=== PATIENT | female | born 1935 | race Caucasian/White ===

== ENCOUNTER → 2024-08-10 | Outpatient (CLI) | payer MEDICARE, BC, SELFPAY ==
[2024-08-10 12:15] LABS: Absolute Lymphocyte Count 1.54 X10^3/uL (0.83-4.51); Absolute Neutrophil Count 3.4 X10^3/uL (2.0-7.7); Basophil# 0.07 X10^3/uL; Basophil% 1.3 % (0-1); Eosinophil# 0.14 X10^3/uL; Eosinophils% 2.5 % (0-5); Hematocrit 42.6 % (37-47); Hemoglobin 13.8 g/dL (12.0-15.0); Lymphocyte # 1.54 X10^3/ul (0.83-4.51); Lymphocyte % 27.8 % (19-41); Mean Corp Hgb Conc 32.4 g/dL (32-36); Mean Corpuscular Hgb 31.2 pg (27.0-32.0); Mean Corpuscular Volume 96.2 fL (81-99); Mean Platelet Vol. 11.2 fl (6.2-12.0); Monocyte% 7.2 % (0-10); NRBC Flagged by Analyzer 0 % (0-5); Neutrophil # 3.37 X10^3/uL (2.7-7.7); Neutrophil % 60.8 % (47-70); Platelet Count 253 K/mm3 (150-450); RBC Distribution Width CV 12.2 % (11.6-14.6); RBC Distribution Width SD 43.4 fl (35.1-43.9); Red Blood Count 4.43 M/mm3 (4.2-5.4); White Blood Count 5.5 K/mm3 (4.4-11.0)
[2024-08-10 12:54] LABS: ALB/GLOB Ratio 1.1 RATIO (0.9-2.4); AST(SGOT) 20 U/L (15-37); Alanine Aminotransfer ALT/SGPT 15 U/L (13-56); Albumin, Serum 3.8 g/dL (3.2-5.0); Alkaline Phosphatase 62 U/L (45-117); Anion Gap 5 (5-15); BUN 20 mg/dL (7-18); BUN/Creat Ratio 20.6 RATIO (10-20); Calcium,Total 9.4 mg/dL (8.5-10.1); Chloride 106 mmol/L (98-107); Cholesterol 196 mg/dL (200); Creatinine, Serum 0.97 mg/dL (0.55-1.02); EST Glomerular Filtration Rate 57 mL/min (>60); Est Glom Filt Rate - Afr Amer 70 mL/min (>60); Globulin 3.6 g/dL (2.2-4.2); Glucose 96 mg/dL (74-106); High Density Lipoprotein 99 mg/dL; Potassium 4.2 mmol/L (3.5-5.1); Protein, Total 7.4 g/dL (6.4-8.2); Sodium Level 138 mmol/L (136-145); Triglycerides 92 mg/dL; Very Low Density Lipoprotein 18 mg/dL (5-40)
[2024-08-10 15:25] LABS: Vitamin D,25 Hydroxy 28.5 ng/mL
== END | disposition home or self-care (01) ==
LOC: BIMLAB 11:17
PROVIDERS: PCP Internal Medicine; Referring Provider Internal Medicine; Visit Provider Internal Medicine
DX: R00.2 Palpitations (principal); M81.0 Age-related osteoporosis without current pathological fracture; R42 Dizziness and giddiness; Z13.6 Encounter for screening for cardiovascular disorders
CPT/HCPCS: 36415; 80053; 80061; 82306; 85025

== ENCOUNTER 2025-02-28 09:30 | Outpatient (RCR) | payer MEDICARE, BC, SELFPAY ==
--- NOTE | 2025-02-15 18:56 | HP.PTEVAL ---
Patient's Visit Information Visit Information Visit Information: SAWYER MART is a 89 year old F referred to Physical Therapy by Dr. Kassy Felder MD with a diagnosis of dizziness and giddiness. Date of Evaluation: 02/15/25 Physical Therapist: SHAY Zepeda Visit Plan Frequency: 2x /Week Duration: 6 Weeks Subjective Subjective: Pt has been having trouble with vertigo. She sleeps on her R side. When she lays down on the R side she will get the room spinning and grabs the headboard and it seems to stop it. She has not laid on her L side for 4 years because of the spinning. She had a VNG test and the Dr maneuvered her. It did get better. The Dr started to treat her on her R side. She feels like it is back. 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 She does not live alone. She has trouble with her sinuses and Dr Camejo gave her a medication for her sinuses She was take meclizine every so often but can not take it with her sinuses. She uses a cane and has had no falls. She is all on one floor except into the house. Objective Objective: +Hallpike to the R for dizziness but not for nystagmus that I could see. It lasted less than 30 seconds. She had to hold her partners hand. + Hallpike to the R for dizziness and Nystagmus that lasted approx 30 seconds. Treated with R Eply. 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 Balance/Special Test Scores Dizziness Score: 32 Goals Goal 1:: Abolish dizziness when lays down on the R side at night Goal Time Frame: 4-6 Weeks Goal 2:: Test VOR if needed Goal Time Frame: 4-6 Weeks Rehabilitation Potential Rehabilitation Potential: Good Anticipated Interventions Patient/Client Instruction: Educate patient on: Condition For the Purpose of:: To improve nutrient delivery to tissue, To improve ability to perform ADL's, To increase tolerance to activity/condition/position, To improve performance and independence with ADL's and To increase flexibility/ROM Therapeutic Exercise to Include: Strength training, Body mechanics, Postural training, Flexibilty training, Gait and locomotor training, Neuromotor development, Passive ROM and Active ROM For the Purpose of:: To decrease pain, To increase ROM, To improve nutrient delivery to tissue, To improve muscle performance and motor function, To improve ability to perform ADL's, To increase tolerance to activity/condition/position, To decrease soft tissue restriction and To increase flexibility/ROM Functional Training to Include: Gait training For the Purpose of:: To improve safety with gait Manual Therapy Techniques to Include: Other Comment: Eply For the Purpose of:: To improve nutrient delivery to tissue and To improve muscle performance and motor function Text: Thank you for the opportunity to evaluate your patient. For Medicare and Medicare HMO plans, please review the plan of care and approve it. It will need to be FAXED BACK to us at [phone] for Medicare purposes. For Medicare only, by signing this I certify the plan of care. Please let me know if there are questions or concerns regarding this plan of care. Physician Signature: Date:
--- NOTE | 2025-02-28 10:05 | HP.PTDCSUM ---
Discharge Summary D/C summary: It has been my pleasure to treat SAWYER MART referred by Dr. Kassy Felder MD, with the diagnosis of dizziness and giddiness for a total of 3 visit(s). Discharge Date: 02/28/25 Please see the following information for a summary of their discharge status. Subjective Subjective: Pt reports that she has not had any dizziness and only had to do the BD for 4 days. Pt wants to get an order from her Dr for weakness. She might want to look into a class for exercises as well. Overall Improvement % Improvement: 100 Objective Objective/Function: -R Hallpike for dizziness and nystagmus -L Hallpike for dizziness and nystagmus Instructed pt and pt performed 3 rounds of BD exercises and pt will perform at home twice a day over the next week Goals Goal 1:: Abolish dizziness when lays down on the R side at night Goal Progress: Goal Met Goal 2:: Test VOR if needed Plan Plan: DC PT D/C Information Discharge Comments: DC PT d/c sentence: If there are questions or concerns regarding this patient's physical therapy, please feel free to call me at [phone]. Thank you for the referral of this patient. Sincerely, Brigida Quesada, MPT Balance/Gait/Functional tests Balance/Special Test Scores Dizziness Score: 26 Improvement % Improvement: 100
== END 2025-02-28 15:48 | disposition home or self-care (01) ==
LOC: PT 09:30
PROVIDERS: PCP Internal Medicine; Referring Provider Internal Medicine; Visit Provider Internal Medicine
DX: R42 Dizziness and giddiness (principal)
CPT/HCPCS: 97161; 97530

== ENCOUNTER → 2025-03-16 | Outpatient (CLI) | payer MEDICARE, BC, SELFPAY ==
--- NOTE | 2025-03-16 08:35 | ECHOD_ITS ---
Reason For Study Reason For Study: MURMUR Procedure This was a 2D Doppler, Color Flow transthoracic echocardiogram. Technically difficult study due to pectus excavatum. No apical images available. Exam performed in department. Left Ventricle Normal size and thickness. The LV systolic function is normal. EF is 65 %. Right Ventricle Normal right ventricle. Atria Normal left atrium. Mitral Valve Trivial mitral valve insufficiency. Tricuspid Valve The tricuspid valve is not well visualized. Aortic Valve Moderately calcified aortic valve. Moderate aortic valve stenosis. Mean peak gradient 25 mmHg. Pulmonic Valve The pulmonic valve is not well visualized. Great Vessels The aortic root is not well visualized. Pericardium/Pleural No pericardial effusion. MMode/2D Measurements & Calculations LVIDd: 4.1 cm IVSd: 0.73 cm LVOT diam: 2.3 cm LVIDs: 2.7 cm LVPWd: 0.89 cm LVOT area: 4.2 cm2 FS: 34.7 % Time Measurements MV dec time: 0.23 sec Doppler Measurements & Calculations MV E max eusebio: 63.2 cm/sec Lat Peak E' Eusebio: 5.7 cm/sec Med Peak E' Eusebio: 6.7 cm/sec MV A max eusebio: 67.0 cm/sec E/E' lat: 11.1 E/E' med: 9.5 MV E/A: 0.94 Ao V2 max: 325.8 cm/sec MV dec slope: 272.0 cm/sec2 Ao max P.8 mmHg Ao V2 mean: 238.2 cm/sec Ao mean P.2 mmHg Ao V2 VTI: 79.2 cm ECHO/Echo Complete Interpretation Summary Technically difficult study due to pectus excavatum. No apical images available The LV systolic function is normal. EF is 65 %. Moderately calcified aortic valve. Moderate aortic valve stenosis. Mean peak gr adient 25 mmHg. Ordering Physician: Kassy Felder Referring Physician: Kassy Felder Performed By: Mecca Castillo [facility]
--- OUTSIDE RECORDS SUMMARY | 2025-03-16 09:53 | XMS RPT_ITS | CCD ---
Author Organization [facility] Care Team Providers Care J2Ee Programmer Name Role Phone IKE FELDER G Primary Care Unavailable Bradford TA, Dr. Elena Primary Care Provider Bradford TA, Dr. Elena Attending Provider Dr. Ike Felder MD Referring Provider Smooth FUR MIXER-CAngela Attending Provider [phone] Greenbush, Ike Referring Unavailable Greenbush, Ike Attending Unavailable Bradford, Ike Primary Care Unavailable Greenbush, Ike Referring Unavailable Greenbush, Ike Attending Unavailable Bradford, Ike Primary Care Unavailable Bradford, Ike Referring Unavailable Bradford, Ike Attending Unavailable Greenbush, Ike Primary Care Unavailable Greenbush, Iek Attending Unavailable Bradford, Ike Primary Care Unavailable Greenbush, Ike Referring Unavailable UngererRyanAngela Attending Unavailable Allergies Allergy Classification Reported Allergen(s) Allergy Type Date of Onset Reaction(s) Facility (1 source) OTHER; Translations: [OTHER] Propensity to adverse reactions (disorder) 8 [facility] Repository (1 source) Adhesive Tape-Silicones Drug Intolerance 5 [facility] (3 sources) Adhesive Tape; Translations: [adhesive tape] Allergy to substance 5 Itching [facility] (2 sources) silver sulfADIAZINE Drug Allergy 5 Rash [facility] (1 source) silver sulfADIAZINE Drug Allergy 5 [facility] Repository Medications Current Medications Medication Drug Class(es) Dates Sig (Normalized) Sig (Original) amoxicillin 875 mg / clavulanate 125 mg oral tablet (2 sources) Penicillin-class Antibacterial Start: 02-08-2025 Amoxicillin-Pot Clavulanate 875-125 mg tablet Active 1 {tbl} PO TWICE A DAY February 08, 2025 12:00am atenolol 25 mg oral tablet (7 sources) beta-Adrenergic Alirio Start: 02-08-2025 Atenolol 25 mg tablet Active 12.5 mg PO daily February 08, 2025 10:36am Start: 02-08-2024 End: 08-10-2024 take 1 tablet by mouth twice daily Atenolol 25 mg tablet Discontinued 25 mg PO TWICE A DAY February 08, 2024 12:00am August 10, 2024 12:02pm Start: 05-12-2008 End: 02-08-2025 take 1 tablet by mouth once daily Atenolol 25 mg tablet Discontinued 25 mg PO daily August 10, 2024 12:02pm February 08, 2025 10:40am benzonatate 100 mg oral capsule (1 source) Non-narcotic Antitussive Start: 11-01-2024 End: 11-08-2024 take 1 capsule by mouth three times daily as needed for cough benzonatate (TESSALON PERLE) 100 mg capsule Indications: Acute non-recurrent sinusitis, unspecified location Take 1 capsule by mouth three times a day as needed for cough for up to 7 days. 21 capsule 11/01/2024 11/08/2024 Active Calcium (1 source) Phosphate Binder, Calcium Start: 05-02-2005 take 1 tablet by mouth twice daily CALCIUM 600 600 MG ORAL TAB Indications: Osteoporosis, unspecified take one twice a day 0 05/02/2005 Active cholecalciferol 0.025 mg oral capsule (2 sources) Vitamin D Start: 02-08-2024 take 1 capsule by mouth once daily Cholecalciferol (Vitamin D3) 25 mcg (1,000 unit) capsule Active 25 ug PO DAILY February 08, 2024 12:00am doxycycline hyclate 100 mg oral tablet (1 source) Tetracycline-clas s Drug Start: 11-01-2024 End: 11-11-2024 take 1 tablet by mouth twice daily doxycycline (VIBRA-TABS) 100 mg tablet Indications: Acute non-recurrent sinusitis, unspecified location Take 1 tablet by mouth two times a day for 10 days. 20 tablet 11/01/2024 11/11/2024 Active ergocalciferol, vitamin D2, (VITAMIN D2 ORAL) (1 source) take 2000 [IU] by mouth once daily ergocalciferol, vitamin D2, (VITAMIN D2 ORAL) Take 2,000 Units by mouth once daily. Active fexofenadine hydrochloride 180 mg oral tablet (2 sources) Histamine-1 Receptor Antagonist Start: 02-08-2025 take 1 tablet by mouth every twenty-four hours Fexofenadine (Esther Allergy) 180 mg tablet Active 180 mg PO Q24H February 08, 2025 12:00am handicap placard (2 sources) Start: 02-08-2025 handicap placard Active 0 .ROUTE .MEDSUPPLY February 08, 2025 12:00am Length of time: 5 years Diagnosis: Impaired physical mobility meclizine hydrochloride 12.5 mg oral tablet (7 sources) Antiemetic Start: 08-10-2024 take 1 tablet by mouth three times daily as needed for dizziness Meclizine 12.5 mg tablet Active 12.5 mg PO THREE TIMES A DAY as needed for dizziness August 10, 2024 12:02pm Start: 02-08-2024 End: 08-10-2024 take 1 tablet by mouth three times daily as needed for dizziness Meclizine 25 mg tablet Discontinued 25 mg PO THREE TIMES A DAY as needed for dizziness February 08, 2024 1:23pm August 10, 2024 12:02pm Start: 02-08-2024 End: 02-08-2024 take 1 tablet by mouth three times daily as needed Meclizine 12.5 mg tablet Discontinued 12.5 mg PO THREE TIMES A DAY as needed February 08, 2024 12:00am February 08, 2024 1:39pm Start: 05-12-2008 MECLIZINE 25 M G TAB Indications: Dizziness and giddiness Take one(1) tablet every 6 hours as needed for dizziness. 30 11 05/12/2008 Active MULTIVITAMIN ORAL TAB (1 source) Start: 05-02-2005 MULTIVITAMIN O RAL TAB Indications: Osteoporosis, unspecified take once daily 0 05/02/2005 Active Multivitamin tablet (2 sources) Start: 02-08-2024 Multivitamin t ablet Active 1 {tbl} PO DAILY February 08, 2024 12:00am predniSONE 20 mg oral tablet (1 source) Start: 11-01-2024 End: 11-06-2024 take 1 tablet by mouth twice daily predniSONE (DELTASONE) 20 mg tablet Indications: Acute non-recurrent sinusitis, unspecified location Take 1 tablet by mouth two times a day for 5 days. 10 tablet 11/01/2024 11/06/2024 Active salmon calcitonin 200 unt/actuat nasal spray (1 source) Calcitonin Start: 05-12-2008 take 1 spray(s) nasal route once daily CALCITONIN (SALMON) 200 UNIT/ACTUATION NASAL SPRAY AEROSOL Indications: Osteoporosis, unspecified 1 spray each nostril each day - alternating 3 05/12/2008 Active salmon oil/omega-3 fatty acids(FISH OIL 500 MG-100 MG CAP) (1 source) Start: 05-12-2008 salmon oil/ome ga-3 fatty acids(FISH OIL 500 MG-100 MG CAP) Take one(1) capsule daily. 0 05/12/2008 Active Problems Active Problems Problem Classification Problem Date Documented Date Episodic/Chronic Administrative/socia l admission (1 source) Other reduced mobility; Translations: [Other reduced mobility] Onset: 02-08-2025 Episodic Cardiac dysrhythmias (1 source) Paroxysmal supraventricular tachycardia; Translations: [Paroxysmal supraventricular tachycardia] 04-14-2024 Chronic Conditions associated with dizziness or vertigo (3 sources) Vertigo; Translations: [Dizziness and giddiness] Onset: 02-08-2025 Episodic Conditions associated with dizziness or vertigo (2 sources) Conditions associated with dizziness or vertigo Heart valve disorders (1 source) Nonrheumatic aortic (valve) stenosis; Translations: [Nonrheumatic aortic (valve) stenosis] Onset: 02-08-2025 Chronic Osteoporosis (2 sources) Osteoporosis; Translations: [Age-related osteoporosis without current pathological fracture] Onset: 08-10-2024 04-14-2024 Chronic Other upper respiratory infections (1 source) Acute sinusitis; Translations: [Acute sinusitis, unspecified] 11-01-2024 Episodic Past or Other Problems Problem Classification Problem Date Documented Date Episodic/Chronic Cardiac dysrhythmias (1 source) Palpitations; Translations: [Palpitations] Onset: 09-05-2024 Episodic Immunizations and screening for infectious disease (1 source) Encounter for immunization; Translations: [Encounter for immunization] Onset: 08-10-2024 Episodic Other screening for suspected conditions (not mental disorders or infectious disease) (1 source) Encounter for screening for cardiovascular disorders; Translations: [Encounter for screening for cardiovascular disorders] Onset: 08-10-2024 Episodic Results Test Name Value Interpretation Reference Range [facility] Internal Medicine Office Vis sameermike 03-10-2025 Internal Medicine Office Visit [facility] [address] [place] [address] [place] [address] OFFICE VISIT Date of Service: 03/10/25 MR#: [id number] Acct: [id number] Name: KENDRA ALSTON Rep #: [id number] : 1935 Provider: JADYN caban Age/Sex: 89/F Location: [facility] Status: Signed Intake Vital Signs 02/08/25 10:21 03/10/25 13:55 Height 5 ft 7 in 5 ft 7 in Weight: 135 lb 136 lb BMI 21.1 21.2 BP 126/80 H 124/68 H Blood Pressure Location Lt brachial Lt brachial Position Sitting Sitting Respiration 18 16 Pulse 68 79 Pulse Source Monitor Monitor Temp 96.7 F L 97.4 F L Temp Source Temporal Temporal Pulse Oximetry (%) 99 92 Oxygen Delivery Method room air room air Intake Visit Reasons: DISCUSS REFERRAL FOR PT Chief Complaint: referral for PT Contract Processor Required: No Accompanied by: Self Is patient in pain?: No Allergies silver sulfadiazine (From Silvadene) Allergy (Intermediate, Verified 03/10/25 13:48) Rash adhesive tape Allergy (Mild, Verified 03/10/25 13:48) Itching Medications ???Medication ???Instructions ???Recorded ???Confirmed ???Type cholecalciferol (vitamin D3) 25 25 mcg PO DAILY 02/08/24 03/10/25 History mcg (1,000 unit) capsule multivitamin 1 tab PO DAILY 02/08/24 03/10/25 H istory meclizine 12.5 mg tablet 12.5 mg PO TID PRN dizziness #90 1 10/10/23 03/10/25 Rx tabs amoxicillin 875 mg-potassium 1 tab PO BID #10 tabs 02/08/2503/29 Rx clavulanate 125 mg tablet atenolol 25 mg tablet 12.5 mg (1/2 x 25 mg) PO QDAY #90 02/08/25 03/10/25 Rx tabs fexofenadine 180 mg tablet 180 mg PO Q24H #10 tabs 02/08/25 0 03/10/25 Rx (Esther Allergy) handicap taras #1 ea 02/08/25 03/10/25 Rx Have you fallen in the past year?: No Nurse's Note: PT suggested she continue to build up some strength and to continue therapy for that PFSH Medical History Heart palpitations Age related osteoporosis Skin cancer Cataract Surgical History History of nephrectomy H/O cataract extraction H/O partial thyroidectomy H/O: hysterectomy History of tonsillectomy Family History Daughter Kidney disease on dialysis Mother Arthritis Father Lung disease Social History adopted: No household members: significant other number of children: 4 current occupational status: retired current occupation: worked at [employer] in [place], [employer] in [place] pets and animals: No Smoking Status: Current every day smoker tobacco type: cigarettes Tobacco: How many years used: 50 Electronic Cigarette Use: not used quit status: not considering quitting alcohol intake: never substance use type: does not use caffeine: Yes (2) Type: coffee frequency: does not exercise seatbelt use: always do you feel safe at home: Yes HPI HPI Chief Complaint: referral for PT Details: KENDRA ALSTON, is a 89 F who presents to the office today for consult for physical therapy. Patient states she had been in physical therapy for vertigo which is now resolved. Per the physical therapy provider she was recommended to have physical therapy for overall strength. Patient does use of a cane when out in public. States she ambulates in her home without the cane she does believe that her overall strength has slowly declined. States previously when she lived in [place] she did do a few different exercise groups to improve strengthening for older adults and would like to continue doing something similar. ROS Const Constitutional: No body ache, excessive sweating, fatigue, fever(s), frequent falls, headache(s), snoring, weakness, weight change, sleep problems or change in appetite Eyes Eyes: No blurry vision, change in vision, eye pain or Light sensitivity ENT ENT: No abnormal hearing, ear or mastoid pain, tinnitus, nasal congestion, headache(s), neck pain or sore throat Resp Respiratory: No cough, shortness of breath, snoring or wheezing Cardio Cardiology: No chest pain at rest, chest pain with exertion, excessive sweating, shortness of breath, dyspnea on exertion, lightheadedness, orthopnea or palpitations Gastro GI: No abdominal pain, change in bowel habits, constipation, cramping, diarrhea, nausea/dyspepsia or vomiting Genitourinary-Female : No burning urination, painful urination, urinary incontinence, urinary frequency, blood in urine, abnormal periods or pelvic pain Musc Musculoskeletal: No abnormal gait, joint pain, back pain, limited range of motion, neck pain, numbness, stiffness, tingling or Arthritis Skin Skin: No dry skin, redness, lesions, itchy eyes, rash or wounds Neuro Neurology: No ab (more content not included)... Normal [facility] PT D/C Summary (1)on 025 PT D/C Summary (1) [facility] Physical [facility] [address] [place] [address] [address] [place] [address] / REHABILITATION SERVICES DISCHARGE SUMMARY MR#: [id number] Acct: [id number] Name: KENDRA ALSTON Rep #: [id number] : 1935 89 From: Brigida DAY Referring Dr.: Dr. Ike Felder MD Status: R EG RCR Insurance: MEDICARE PART A B ANTH Discharge Summary D/C summary: It has been my pleasure to treat KENDRA ALSTON referred by Dr. Ike Felder MD, with the diagnosis of dizziness and giddiness for a total of 3 visit(s). Discharge Date: 02/28/25 Please see the following information for a summary of their discharge status. Subjective Subjective: Pt reports that she has not had any dizziness and only had to do the BD for 4 days. Pt wants to get an order from her Dr for weakness. She might want to look into a class for exercises as well. Overall Improvement % Improvement: 100 Objective Objective/Function: -R Hallpike for dizziness and nystagmus -L Hallpike for dizziness and nystagmus Instructed pt and pt performed 3 rounds of BD exercises and pt will perform at home twice a day over the next week Goals Goal 1:: Abolish dizziness when lays down on the R side at night Goal Progress: Goal Met Goal 2:: Test VOR if needed Plan Plan: DC PT D/C Information Discharge Comments: DC PT d/c sentence: If there are questions or concerns regarding this patient's physical therapy, please feel free to call me at [phone]. Thank you for the referral of this patient. Sincerely, SHAY Zepeda Balance/Gait/Functio nal tests Balance/Special Test Scores Dizziness Score: 26 Improvement % Improvement: 100 02/28/25 1005 CC: Dr. Ike Felder MD Signed [facility] Inital Evaluation (1) - PTon 02-15-2025 Inital Evaluation (1) - PT [facility] [address] [place] [id number] / REHABILITATION SERVICES INITIAL EVALUATION MR#: [id number] Acct: [id number] Name: KENDRA ALSTON Rep #: [id number] : 1935 89 From: Brigida DAY Referring Dr.: Dr. Ike Felder MD Status: R EG RCR Insurance: MEDICARE PART A B [facility] Patient's Visit Information Visit Information Visit Information: KENDRA ALSTON is a 89 year old F referred to Physical Therapy by Dr. Ike Felder MD with a diagnosis of dizziness and giddiness. Date of Evaluation: 02/15/25 Physical Therapist: SHAY Zepeda Visit Plan Frequency: 2x /Week Duration: 6 Weeks Subjective Subjective: Pt has been having trouble with vertigo. She sleeps on her R side. When she lays down on the R side she will get the room spinning and grabs the headboard and it seems to stop it. She has not laid on her L side for 4 years because of the spinning. She had a VNG test and the Dr maneuvered her. It did get better. The Dr started to treat her on her R side. She feels like it is back. She has a home delivery driver today. She does not live alone. She has trouble with her sinuses and Dr Camejo gave her a medication for her sinuses She was take meclizine every so often but can not take it with her sinuses. She uses a cane and has had no falls. She is all on one floor except into the house. Objective Objective: +Hallpike to the R for dizziness but not for nystagmus that I could see. It lasted less than 30 seconds. She had to hold her partners hand. + Hallpike to the R for dizziness and Nystagmus that lasted approx 30 seconds. Treated with R Eply. 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 Balance/Special Test Scores Dizziness Score: 32 Goals Goal 1:: Abolish dizziness when lays down on the R side at night Goal Time Frame: 4-6 Weeks Goal 2:: Test VOR if needed Goal Time Frame: 4-6 Weeks Rehabilitation Potential Rehabilitation Potential: Good Anticipated Interventions Patient/Client Instruction: Educate patient on: Condition For the Purpose of:: To improve nutrient delivery to tissue, To improve ability to perform ADL's, To increase tolerance to activity/condition/p osition, To improve performance and independence with ADL's and To increase flexibility/ROM Therapeutic Exercise to Include: Strength training, Body mechanics, Postural training, Flexibilty training, Gait and locomotor training, Neuromotor development, Passive ROM and Active ROM For the Purpose of:: To decrease pain, To increase ROM, To improve nutrient delivery to tissue, To improve muscle performance and motor function, To improve ability to perform ADL's, To increase tolerance to activity/condition/p osition, To decrease soft tissue restriction and To increase flexibility/ROM Functional Training to Include: Gait training For the Purpose of:: To improve safety with gait Manual Therapy Techniques to Include: Other Comment: Eply For the Purpose of:: To improve nutrient delivery to tissue and To improve muscle performance and motor function Text: Thank you for the opportunity to evaluate your patient. For Medicare and Medicare O plans, please review the plan of care and approve it. It will need to be FAXED BACK to us at [phone] for Medicare purposes. For Medicare only, by signing this I certify the plan of care. Please let me know if there are questions or concerns regarding this plan of care. Physician Signature: D ate: 02/15/25 1856 CC: Dr. Ike Felder MD Signed [facility] Internal Medicine Office Vis iton 02-07-2025 Internal Medicine Office Visit [facility] [place] [address] [place] [address] OFFICE VISIT Date of Service: 02/08/25 MR#: [id number] Acct: [id number] Name: KEDNRA ALSTON Rep #: [id number] : 1935 Provider: Dr. Ike tyson MD Age/Sex: 89/F Location: [facility] Status: Signed Intake Vital Signs 08/10/24 10:10 02/08/25 10:21 Height 5 ft 7 in 5 ft 7 in Weight: 135 lb BMI 21.1 BP 126/80 H Blood Pressure Location Lt brachial Position Sitting Respiration 18 Pulse 68 Pulse Source Monitor Temp 96.7 F L Temp Source Temporal Pulse Oximetry (%) 99 Oxygen Delivery Method room air Intake Visit Reasons: 6 M FU Contract Processor Required: No Is patient in pain?: No Allergies silver sulfadiazine (From Silvadene) Allergy (Intermediate, Verified 02/08/25 10:12) Rash adhesive tape Allergy (Mild, Verified 02/08/25 10:12) Itching Medications ???Medication ???Instructions ???Recorded ???Confirmed ???Type cholecalciferol (vitamin D3) 25 25 mcg PO DAILY 02/08/24 02/08/25 History mcg (1,000 unit) capsule multivitamin 1 tab PO DAILY 02/08/24 02/08/25 H istory meclizine 12.5 mg tablet 12.5 mg PO TID PRN dizziness #90 1 10/10/23 02/08/25 Rx tabs amoxicillin 875 mg-potassium 1 tab PO BID #10 tabs 02/08/2504/28 Rx clavulanate 125 mg tablet atenolol 25 mg tablet 12.5 mg (1/2 x 25 mg) PO QDAY #90 02/08/25 02/08/25 Rx tabs fexofenadine 180 mg tablet 180 mg PO Q24H #10 tabs 02/08/25 0 02/08/25 Rx (Esther Allergy) handicap placard #1 ea 02/08/25 02/08/25 Rx Have you fallen in the past year?: No Nurse's Note: Pt states she has been fatigued for a couple of weeks now. She also had a cough that is somewhat productive that started around the same time. Pt states the production is yellowish/green, she also c/o post nasal drainage. Has been using tylneol. Denies SOB, chest rattling, nasal congestion,facial pain/pressure ear pain. Needs atenolol refilled. [facility] Medical History Heart palpitations Age related osteoporosis Skin cancer Cataract Surgical History History of nephrectomy H/O cataract extraction H/O partial thyroidectomy H/O: hysterectomy History of tonsillectomy Family History Daughter Kidney disease on dialysis Mother Arthritis Father Lung disease Social History adopted: No household members: significant other number of children: 4 current occupational status: retired current occupation: worked at [employer] in [place], [employer] in [place] pets and animals: No Smoking Status: Current every day smoker tobacco type: cigarettes Tobacco: How many years used: 50 Electronic Cigarette Use: not used quit status: not considering quitting alcohol intake: never substance use type: does not use caffeine: Yes (2) Type: coffee frequency: does not exercise seatbelt use: always do you feel safe at home: Yes Questionnaire [facility]-9 BMS Over the last 2 weeks, how often have you been bothered by any of the following problems? 1. Little interest or pleasure in doing things: not at all 2. Feeling down, depressed, or hopeless: not at all 3. Trouble falling or staying asleep, or sleeping too much: several days 4. Feeling tired or having little energy: nearly every day 5. Poor appetite or overeating: several days 6. Feeling bad about yourself - or that you are a failure or have let yourself and your family down: not at all 7. Trouble concentrating on things, such as reading the newspaper or watching television: not at all 8. Moving or speaking so slowly that other people could have noticed? - Or the opposite - being so fidgety or restless that you have been moving around a lot more than usual: not at all 9. Thoughts that you would be better off or of hurting yourself in some way: not at all Total score: 5 If you checked off any problems, how difficult have these problems made it for you to do your work, take care of things at home, or get along with other people?: not difficult at all Source: Developed by Drs. Negrito Ken, Mary Amaya, Kane Salguero and colleagues, with an educational jerrell from [employer]. HPI HPI Details: KENDRA ALSTON, is a 89 F who presents to the office today for a follow up. She is up to date on her routine blood work and screening. She isn't due for any immunizations. She does smoke and doesn't want to quit at this time. She states, however, that she has cut back to 5 cigarettes per day down from 8-10. She does need refills today. She reports she is trying to eat healthy and tries to stay active around her house. She takes aten (more content not included)... [facility] CNOVon 11-01-2024 CNOV Office Visit ([facility]) KENDRA ALSTON ([id number]) 1935 F Date Time Provider Department 11/01/24 8:30 AM MUNIRA RUST [facility] During your visit today, we recorded the following information about you: Temperature Pulse Respiration Blood pressure 98 degrees 94/minute 22/minute 132/73 Weight 62 kg Munira Rust PA-C 11/01/2024 9:23 AM Signed This note was created using [employer]. Subjective Kendra Alston is a 89 year old female. Patient is an 89-year-old female who complains of congestion, sinus pressure, throat irritation, nasal discharge and cough that she has been experiencing for the past 10 days. Patient also describes an overall feeling of fatigue and illness. Patient has no history of asthma or COPD but does have a [id number] history of tobacco use and continues to smoke. Patient reports no episodes of wheezing, dyspnea or shortness of breath. Cough Review of Systems Constitutional: Positive for fatigue. HENT: Positive for congestion, postnasal drip and sinus pressure. Respiratory: Positive for cough. All other systems reviewed and are negative. Objective BP 132/73 Pulse 94 Temp 36.7 ?C (98 ?F) Resp 22 Wt 62 kg (136 lb 11 oz) LMP (LMP Unknown) SpO2 95% Physical Exam Vitals and nursing note reviewed. Constitutional: Appearance: Normal appearance. She is normal weight. HENT: Head: Normocephalic and atraumatic. Right Ear: Tympanic membrane, ear canal and external ear normal. Left Ear: Tympanic membrane, ear canal and external ear normal. Nose: Nose normal. Mouth/Throat: Mouth: Mucous membranes are moist. Pharynx: Oropharynx is clear. Eyes: Extraocular Movements: Extraocular movements intact. Conjunctiva/sclera: Conjunctivae normal. Pupils: Pupils are equal, round, and reactive to light. Cardiovascular: Rate and Rhythm: Normal rate and regular rhythm. Pulses: Normal pulses. Heart sounds: Normal heart sounds. Pulmonary: Effort: Pulmonary effort is normal. Breath sounds: Normal breath sounds. Musculoskeletal: Cervical back: Normal range of motion and neck supple. Skin: General: Skin is warm and dry. Capillary Refill: Capillary refill takes less than 2 seconds. Neurological: General: No focal deficit present. Mental Status: She is alert and oriented to person, place, and time. Psychiatric: Mood and Affect: Mood normal. Behavior: Behavior normal. Thought Content: Thought content normal. Judgment: Judgment normal. Assessment and Plan Physical exam findings as noted above. Patient was provided with prescriptions for doxycycline 100 mg, prednisone 20 mg and Tessalon 100 mg. Supportive care instructions were discussed and the patient was clearly advised to report to an emergency department if she notes any worsening symptoms. Patient verbalizes clear understanding of the above instructions. CLINICAL IMPRESSION: Acute Sinusitis ASSESSMENT/PLAN: 1. Acute non-recurrent sinusitis, unspecified location - ICD9: 461.9, ICD10: J01.90 - DOXYCYCLINE HYCLATE 100 MG TABLET - PREDNISONE 20 MG TABLET - BENZONATATE 100 MG CAPSULE Munira Rust PA-C Allergies As of Date: 11/01/2024 Noted Allergy Reaction ADHESIVE TAPE-SILICONES 11/01/2024 2 - Rash Date Reviewed: 11/01/2024 Reviewed by: Nona Christopher LPN - Fully Assessed Reason for Visit: Cough [28] Cmt: Chest congestion, nasal congestion, headache, fatigue, SOB, wheeze bilat eye mucous, yellow phlegm x 1 week Primary Visit Diagnosis:Acute non-recurrent sinusitis, unspecified location [J01.90] Order(s):doxycycline (VIBRA-TABS) 100 mg tabletTake 1 tablet by mouth two times a day for 10 days.Disp: 20 tabletRfl: 0 predniSONE (DELTASONE) 20 mg tabletTake 1 tablet by mouth two times a day for 5 days.Disp: 10 tabletRfl: 0 benzonatate (TESSALON PERLE) 100 mg capsuleTake 1 capsule by mouth three times a day as needed for cough for up to 7 days.Disp: 21 capsuleRfl: 0 Prescriptions as of 11/01/2024 - ergocalciferol, vitamin D2, (VITAMIN D2 ORAL) Take 2,000 Units by mouth once daily. - doxycycline (VIBRA-TABS) 100 mg tablet Take 1 tablet by mouth two times a day for 10 days. - predniSONE (DELTASONE) 20 mg tablet Take 1 tablet by mouth two times a day for 5 days. - benzonatate (TESSALON PERLE) 100 mg capsule Take 1 capsule by mouth three times a day as needed for cough for up to 7 days. - salmon oil/omega-3 fatty acids(FISH OIL 500 MG-100 MG CAP) Take one(1) capsule daily. - CALCITONIN (SALMON) 200 UNIT/ACTUATION NASAL SPRAY AEROSOL 1 spray each nostril each day - alternating - MECLIZINE 25 MG TAB Take one(1) tablet every 6 hours as needed for dizziness. - ATENOLOL 25 MG TAB Take one(1) tablet daily. - CALCIUM 600 600 MG ORAL TAB take one twice a day - MULTIVITAMIN ORAL TAB take once daily Problem List As Of Date 11/01/2024 Noted Resolved PAROX ATRIAL TACHYCAR (more content not included)... Normal [facility] CBC W/Diff, Automatedon 11-0 Absolute Lymph 1.54 X10 3/uL Normal 0.83-4.51 [facility] Comment on above: Performed By: #### L 500.4050, L506.1000, L100.0100, L500.4100 #### [facility] [address] [place], [address] Absolute Neut 3.4 X10 3/uL Normal 2.0-7.7 [facility] Comment on above: Performed By: #### L 500.4050, L506.1000, L100.0100, L500.4100 #### [facility] [address] [place], [address] Basophils/100 WBC (Bld) 1.3 % High 0-1 [facility] Comment on above: Performed By: #### L 500.4050, L506.1000, L100.0100, L500.4100 #### [facility] [address] [place], [address] Eosinophils/100 WBC (Bld) 2.5 % Normal 0-5 [facility] Comment on above: Performed By: #### L 500.4050, L506.1000, L100.0100, L500.4100 #### [facility] [address] [place], [address] Erythrocyte distribution width (RBC) [Ratio] 12.2 % Normal 11.6-14.6 [facility] Comment on above: Performed By: #### L 500.4050, L506.1000, L100.0100, L500.4100 #### [facility] [address] [place], [address] Hematocrit (Bld) [Volume fraction] 42.6 % Normal 37-47 [facility] Comment on above: Performed By: #### L 500.4050, L506.1000, L100.0100, L500.4100 #### [facility] [address] [place], [address] Hemoglobin (Bld) [Mass/Vol] 13.8 g/dL Normal 12.0-15.0 [facility] Comment on above: Performed By: #### L 500.4050, L506.1000, L100.0100, L500.4100 #### [facility] [address] [place], [address] IG% 0.400 Normal 0.0-0.9 [facility] Comment on above: Result Comment: IG% - Immature Granulocytes (promyelocytes, myelocytes and metamyelocytes) > 1% indicates that a LEFT SHIFT is Present. Performed By: #### L 500.4050, L506.1000, L100.0100, L500.4100 #### [facility] [address] [place], [address] Lymphocytes/100 WBC (Bld) 27.8 % Normal 19-41 [facility] Comment on above: Performed By: #### L 500.4050, L506.1000, L100.0100, L500.4100 #### [facility] [address] [place], [address] MCH (RBC) [Entitic mass] 31.2 pg Normal 27.0-32.0 [facility] Comment on above: Performed By: #### L 500.4050, L506.1000, L100.0100, L500.4100 #### [facility] [address] [place], [address] MCHC (RBC) [Mass/Vol] 32.4 g/dL Normal 32-36 [facility] Comment on above: Performed By: #### L 500.4050, L506.1000, L100.0100, L500.4100 #### [facility] [address] [place], [address] MCV (RBC) [Entitic vol] 96.2 fL Normal 81-99 [facility] Comment on above: Performed By: #### L 500.4050, L506.1000, L100.0100, L500.4100 #### [facility] [address] [place], [address] Monocytes/100 WBC (Bld) 7.2 % Normal 0-10 [facility] Comment on above: Performed By: #### L 500.4050, L506.1000, L100.0100, L500.4100 #### [facility] [address] [place], [address] Neutrophils/100 WBC (Bld) 60.8 % Normal 47-70 [facility] Comment on above: Performed By: #### L 500.4050, L506.1000, L100.0100, L500.4100 #### [facility] [address] [place], [address] Nucleated RBC (Bld) [#/Vol] 0 10*3/uL Normal 0-5 [facility] Comment on above: Performed By: #### L 500.4050, L506.1000, L100.0100, L500.4100 #### [facility] [address] [place], [address] Platelet mean volume (Bld) [Entitic vol] 11.2 fL Normal 6.2-12.0 [facility] Comment on above: Performed By: #### L 500.4050, L506.1000, L100.0100, L500.4100 #### [facility] [address] [place], [address] Platelets (Bld) [#/Vol] 253 10*3/uL Normal 150-450 [facility] Comment on above: Performed By: #### L 500.4050, L506.1000, L100.0100, L500.4100 #### [facility] [address] [place], [address] RBC (Bld) [#/Vol] 4.43 10*6/uL Normal 4.2-5.4 [facility] Comment on above: Performed By: #### L 500.4050, L506.1000, L100.0100, L500.4100 #### [facility] [address] [place], [address] RDW SD 43.4 fl Normal 35.1-43.9 [facility] Comment on above: Performed By: #### L 500.4050, L506.1000, L100.0100, L500.4100 #### [facility] [address] [place], [address] WBC (Bld) [#/Vol] 5.5 10*3/uL Normal 4.4-11.0 [facility] Comment on above: Performed By: #### L 500.4050, L506.1000, L100.0100, L500.4100 #### [facility] [address] [place], [address] Comprehensive Metabolic Prof ilon 08-10-2024 Albumin [Mass/Vol] 3.8 g/dL Normal 3.2-5.0 [facility] Comment on above: Performed By: #### L 500.4050, L506.1000, L100.0100, L500.4100 #### [facility] [address] [place], [address] Albumin/Globulin [Mass ratio] 1.1 {ratio} Normal 0.9-2.4 [facility] Comment on above: Performed By: #### L 500.4050, L506.1000, L100.0100, L500.4100 #### [facility] [address] [place], [address] ALK P 62 U/L Normal 45-117 [facility] Comment on above: Performed By: #### L 500.4050, L506.1000, L100.0100, L500.4100 #### [facility] [address] [place], [address] ALT [Catalytic activity/Vol] 15 U/L Normal 13-56 [facility] Comment on above: Performed By: #### L 500.4050, L506.1000, L100.0100, L500.4100 #### [facility] [address] [place], [address] AST [Catalytic activity/Vol] 20 U/L Normal 15-37 [facility] Comment on above: Performed By: #### L 500.4050, L506.1000, L100.0100, L500.4100 #### [facility] [address] [place], [address] Bilirubin [Mass/Vol] 0.70 mg/dL Normal 0.20-1.00 [facility] Comment on above: Result Comment: For patients on eltrombopag therapy, use of Dimension [place] TBIL is not recommended. Performed By: #### L 500.4050, L506.1000, L100.0100, L500.4100 #### [facility] [address] [place], [address] BUN/CRE 20.6 RATIO High 10-20 [facility] Comment on above: Performed By: #### L 500.4050, L506.1000, L100.0100, L500.4100 #### [facility] [address] [place], [address] CA,Total 9.4 mg/dL Normal 8.5-10.1 [facility] Comment on above: Performed By: #### L 500.4050, L506.1000, L100.0100, L500.4100 #### [facility] [address] [place], [address] Chloride [Moles/Vol] 106 mmol/L Normal 98-107 [facility] Comment on above: Performed By: #### L 500.4050, L506.1000, L100.0100, L500.4100 #### [facility] [address] [place], [address] CO2 [Moles/Vol] 28.0 mmol/L Normal 21.0-32.0 [facility] Comment on above: Performed By: #### L 500.4050, L506.1000, L100.0100, L500.4100 #### [facility] [address] [place], [address] Creatinine [Mass/Vol] 0.97 mg/dL Normal 0.55-1.02 [facility] Comment on above: Result Comment: The validity of the calculated GFR GFRAA in patients over 70 years has not been determined. Clinical correlation is essential. Performed By: #### L 500.4050, L506.1000, L100.0100, L500.4100 #### [facility] [address] [place], [address] EST GFR - AA 70 mL/min Normal >60 [facility] Comment on above: Result Comment: Afri can [place] Islander GFR Calc Performed By: #### L 500.4050, L506.1000, L100.0100, L500.4100 #### [facility] [address] [place], [address] GAP 5 Normal 5-15 [facility] Comment on above: Performed By: #### L 500.4050, L506.1000, L100.0100, L500.4100 #### [facility] [address] [place], [address] GFR/1.73 sq M.predicted among non-blacks MDRD (S/P/Bld) [Vol rate/Area] 57 mL/min/{1.73_m2} Low >60 [facility] Comment on above: Result Comment: Non- GFR Calc Performed By: #### L 500.4050, L506.1000, L100.0100, L500.4100 #### [facility] [address] [place], [address] Globulin (S) [Mass/Vol] 3.6 g/dL Normal 2.2-4.2 [facility] Comment on above: Performed By: #### L 500.4050, L506.1000, L100.0100, L500.4100 #### [facility] [address] [place], [address] Glucose [Mass/Vol] 96 mg/dL Normal 74-106 [facility] Comment on above: Performed By: #### L 500.4050, L506.1000, L100.0100, L500.4100 #### [facility] [address] [place], [address] Potassium [Moles/Vol] 4.2 mmol/L Normal 3.5-5.1 [facility] Comment on above: Performed By: #### L 500.4050, L506.1000, L100.0100, L500.4100 #### [facility] [address] [place], [address] Sodium [Moles/Vol] 138 mmol/L Normal 136-145 [facility] Comment on above: Performed By: #### L 500.4050, L506.1000, L100.0100, L500.4100 #### [facility] [address] [place], [address] T PROT 7.4 g/dL Normal 6.4-8.2 [facility] Comment on above: Performed By: #### L 500.4050, L506.1000, L100.0100, L500.4100 #### [facility] [address] [place], [address] Urea nitrogen [Mass/Vol] 20 mg/dL High 7-18 [facility] Comment on above: Performed By: #### L 500.4050, L506.1000, L100.0100, L500.4100 #### [facility] [address] [place], [address] Lipid Profileon 08-10-2024 Cholesterol [Mass/Vol] 196 mg/dL Normal 200 [facility] Comment on above: Result Comment: <200 mg/dL Desirable 200-240 mg/dL Borderline >240 mg/dL High Risk Performed By: #### L 500.4050, L506.1000, L100.0100, L500.4100 #### [facility] [address] [place], [address] Cholesterol in HDL [Mass/Vol] 99 mg/dL Normal [facility] Comment on above: Result Comment: The drugs N-Acetylcysteine and Metamizole may falsely depress this assay. Reference Range HDL <40 mg/dL Low HDL Cholesterol HDL >or= 60 mg/dL High HDL Cholesterol Performed By: #### L 500.4050, L506.1000, L100.0100, L500.4100 #### [facility] [address] [place], [address] Cholesterol in LDL [Mass/Vol] 79 mg/dL Normal 0-130 [facility] Comment on above: Performed By: #### L 500.4050, L506.1000, L100.0100, L500.4100 #### [facility] [address] [place], [address] Cholesterol in VLDL [Mass/Vol] 18 mg/dL Normal 5-40 [facility] Comment on above: Performed By: #### L 500.4050, L506.1000, L100.0100, L500.4100 #### [facility] [address] [place], [address] Triglyceride [Mass/Vol] 92 mg/dL Normal [facility] Comment on above: Result Comment: The drugs N-Acetylcysteine and Metamizole may falsely depress this assay. Serum Triglycerides Reference Interval Normal <150 mg/dL Borderline high 150 - 199 mg/dL High 200 - 499 mg/dL Very High > or = 500 mg/dL Performed By: #### L 500.4050, L506.1000, L100.0100, L500.4100 #### [facility] [address] [place], [address] Vitamin D,25 Hydroxyon 08-10 Vitamin D 25-OH 28.5 ng/mL Normal [facility] Comment on above: Result Comment: Diana min D 25(OH) Status Range Deficiency <20 ng/mL (50nmol/L) Insufficiency 20 - 30 ng/mL (50 - 75 nmol/L) Sufficiency 30 - 100 ng/mL (75 - 250 nmol/L) Toxicity >100 ng/mL (>250 nmol/L) Performed By: #### L 500.4050, L506.1000, L100.0100, L500.4100 #### [facility] [address] [place], [address] Internal Medicine Office Vis jasmeet 08-09-2024 Internal Medicine Office Visit [facility] [place] [address] OFFICE VISIT Date of Service: 08/10/24 MR#: [id number] Acct: [id number] Name: KENDRA ALSTON Rep #: [id number] : 1935 Provider: Dr. 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 Accompanied by: Self Is patient in pain?: No Allergies silver sulfadiazine (From Silvadene) Allergy (Intermediate, Verified 08/10/24 10:05) Rash adhesive tape Allergy (Mild, Verified 08/10/24 10:05) Itching Medications ???Medication ???Instructions ???Recorded ???Confirmed ???Type cholecalciferol (vitamin D3) 25 25 mcg PO DAILY 02/08/24 08/10/24 History mcg (1,000 unit) capsule multivitamin 1 tab PO DAILY 02/08/24 08/10/24 History atenolol 25 mg tablet 25 mg PO QDAY #90 tabs 08/10/24 08/10/24 Rx meclizine 12.5 mg tablet 12.5 mg PO TID PRN dizziness #90 08/10/24 08/10/24 Rx tabs Have you fallen in the past year?: No PFSH Medical History Heart palpitations Age related osteoporosis Skin cancer Cataract Surgical History (Updated 08/10/24 @ 10:[address] Ike Felder MD) History of nephrectomy H/O cataract extraction H/O partial thyroidectomy H/O: hysterectomy History of tonsillectomy Family History Daughter Kidney disease on dialysis Mother Arthritis Father Lung disease Social History adopted: No household members: significant other number of children: 4 current occupational status: retired current occupation: worked at [employer] in [place], [employer] in [place] pets and animals: No Smoking Status: Current every day smoker tobacco type: cigarettes Tobacco: How many years used: 50 Electronic Cigarette Use: not used quit status: not considering quitting alcohol intake: never substance use type: does not use caffeine: Yes (2) Type: coffee frequency: does not exercise seatbelt use: always do you feel safe at home: Yes HPI HPI Chief Complaint: 6m f/u Details: KENDRA ALSTON, is a 89 F who presents to the office today for a follow up. She is due for some routine blood work and is up to date on her screening. She does want her flu shot. She does smoke and doesn't want to quit at this time. She doesn't need any refills today. She reports she is eating healthy and tries to stay active around her house. The patient has been on atenolol for around 15 years. She reports it was started for palpitations. She reports she could feel the pounding sensation. She reports in the last few months, she changed to taking it as needed. She reports she can sometimes go a few days without any symptoms. She reports on the days she does take it, she has only needed it once daily. The patient was able to see dermatology and saw them yesterday. She was placed on a chemo cream for a lesion on her samaritan which she just completed 4 weeks of. She has a full body scan next month. The patient reports she continues to have problems with vertigo. She reports when she lays down at night, she will feel a brief episode. She does take the meclizine. She states the higher dose made her feel 'wonky.' She went back to using the smaller dose noting she had an older prescription. She never scheduled with vestibular therapy stating nobody called her, but she would like to get that set up. She has no other questions or concerns at this time. ROS Const Constitutional: No body ache, chills, excessive sweating, fatigue, fever(s), frequent falls, headache(s), snoring, weakness, weight change or change in appetite Eyes Eyes: No blurry vision, change in vision, eye pain or Light sensitivity ENT ENT: No abnormal hearing, ear or mastoid pain, tinnitus, nasal congestion, headache(s), neck pain or sore throat Resp Respiratory: No cough, shortness of breath, snoring or wheezing Cardio Cardiology: Positive for palpitations (occasional) and other (mild swelling); No chest pain at rest, chest pain with exertion, excessive sweating, dyspnea on exertion, lightheadedness or orthopnea Gastro GI: No abdominal pain, change in bowel habits, constipation, cramping, diarrhea, nausea/dyspepsia or vomiting Genitourinary-Female : No burning urination, painful urination, urinary incontinence or urinary frequency Musc Mu (more content not included)... Normal [facility] Vital Signs Date Time Vital Sign Value Performing Clinician Facility 03-10-2025 13:55-0400 Body height 170.[address] Ike Felder MD Work Phone: [facility] 03-10-2025 13:55-0400 Body mass index (BMI) [Ratio] 21.2 kg/m2 Dr. Ike Felder MD Work Phone: [facility] 03-10-2025 13:55-0400 Body temperature 97.4 [degF] Dr. Ike Felder MD Work Phone: [facility] 03-10-2025 13:55-0400 Body weight 61.[address] Ike Felder MD Work Phone: [facility] 03-10-2025 13:55-0400 Diastolic blood pressure 68 mm[Hg] Dr. Ike Felder MD Work Phone: [facility] 03-10-2025 13:55-0400 Heart rate 79 /min Dr. Ike Felder MD Work Phone: [facility] 03-10-2025 13:55-0400 Respiratory rate 16 /min Dr. Ike Felder MD Work Phone: [facility] 03-10-2025 13:55-0400 SaO2% (BldA) [Mass fraction] 92 % Dr. Ike Felder MD Work Phone: [facility] 03-10-2025 13:55-0400 Systolic blood pressure 124 mm[Hg] Dr. Ike Felder MD Work Phone: [facility] 02-08-2025 10:21-0400 Body height 170.[address] Ike Felder MD Work Phone: [facility] 02-08-2025 10:21-0400 Body mass index (BMI) [Ratio] 21.1 kg/m2 Dr. Ike Felder MD Work Phone: [facility] 02-08-2025 10:21-0400 Body temperature 96.7 [degF] Dr. Ike Felder MD Work Phone: [facility] 02-08-2025 10:21-0400 Body weight 61.[address] Ike Felder MD Work Phone: [facility] 02-08-2025 10:21-0400 Diastolic blood pressure 80 mm[Hg] Dr. Ike Felder MD Work Phone: [facility] 02-08-2025 10:21-0400 Heart rate 68 /min Dr. Ike Felder MD Work Phone: [facility] 02-08-2025 10:21-0400 Respiratory rate 18 /min Dr. Ike Felder MD Work Phone: [facility] 02-08-2025 10:21-0400 SaO2% (BldA) [Mass fraction] 99 % Dr. Ike Felder MD Work Phone: [facility] 02-08-2025 10:21-0400 Systolic blood pressure 126 mm[Hg] Dr. Ike Felder MD Work Phone: [facility] 11-01-2024 08:42-0500 Body temperature 98.01 [degF] Munira Rust PA-C Work Phone: [facility] 11-01-2024 08:42-0500 Body weight 62 kg Munira Clutter PA-C Work Phone: [facility] 11-01-2024 08:42-0500 Diastolic blood pressure 73 mm[Hg] Munira Clutter PA-C Work Phone: [facility] 11-01-2024 08:42-0500 Heart rate 94 /min Munira Clutter PA-C Work Phone: [facility] 11-01-2024 08:42-0500 Respiratory rate 22 /min Munira Clutter PA-C Work Phone: [facility] 11-01-2024 08:42-0500 SaO2% (BldA) [Mass fraction] 95 % Munira Clutter PA-C Work Phone: [facility] 11-01-2024 08:42-0500 Systolic blood pressure 132 mm[Hg] Munira Clutter PA-C Work Phone: [facility] Encounters Encounter Date Encounter Type Care Provider Facility Start: 03-10-2025 End: 03-10-[address] Ike Felder MD Work Phone: [facility] Work Phone: Start: 03-10-2025 End: 03-10-2025 Patient encounter procedure Angela WONGC -[facility] Work Phone: Start: 02-28-2025 End: 02-28-[address] Ike Felder MD Work Phone: [facility] Work Phone: Start: 02-28-2025 End: 02-28-[address] Ike Felder MD -Physical Therapy Work Phone: Start: 02-08-2025 End: 02-08-[address] Ike Felder MD -[facility] Work Phone: Start: 02-08-2025 End: 02-08-2025 ambulatory Ike Felder Facility:[facility] Start: 11-01-2024 End: 11-01-2024 ambulatory IKE JUAREZLAY Facility:[facility] Start: 11-01-2024 End: 11-01-2024 Office outpatient new 30 minutes Munira Rust PA-C Work Phone: [facility] Comment on above: Acute non-recurrent sinusitis, unspecified location (Primary Dx) Start: 08-10-2024 End: 08-10-2024 ambulatory Iketa Juarezlay Facility:[facility] Start: 08-10-2024 End: 08-10-2024 ambulatory Ike Bradford Facility:[facility] Plan of Treatment Date Care Activity Detail Author Start: 02-08-2025 Patient referral [facility] Work Phone: Start: 10-05-2024 Advance Directive Discussion Advance Directive Discussion [facility] Start: 06-05-2024 Covid-19 Vaccine ( season) Covid-19 Vaccine () [facility] Start: 05-22-2011 Diabetes Screening Diabetes Screening [facility] Start: 06-28-2009 Screening for osteoporosis Bone Density Screening [facility] Start: 1986 Shingrix Vaccine (1 of 2) Shingrix Vaccine (1 of 2) [facility] Start: 1955 Pneumococcal Vaccine: 50+ (1 of 2 - PCV) Pneumococcal Vaccine: 50+ (1 of 2 - PCV) [facility] Start: 1955 Urine microalbumin profile DTaP,Tdap,Td Vaccine (1 - Tdap) [facility] [facility] Start: 1953 Anxiety Screening Anxiety Screening [facility] Start: 1953 Depression Screening Depression Screening [facility] Patient referral [facility] Work Phone: Tobacco use cessatio n education [facility] Immunizations Immunization Date Immunization Notes Care Provider Geraldine flores 08-10-2024 Seasonal trivalent influenza vaccine, adjuvanted, preservative free Dr. Ike Felder MD Work Phone: [facility] 11-24-2023 RSV Adult Recombinan t (Arexvy) Dr. Ike Felder MD Work Phone: [facility] Payers Date Payer Category Payer Unknown [employer] DIC[employer] SUPPLEMENT [id number] 2024-Present [phone] [address] [place] [address] Indemnity [id number] 2024 Self-pay 2024 Medicare [id number] 2001 Medicare MEDICARE MEDICAR E A AND B [id number] 2001-Present [phone] [place] [address] Medicare [id number] 2001 Medicare [id number] Unknown [id number] 2 Unknown [id number] 2 Unknown [id number] 2 Unknown [id number] 2 Unknown [id number] 2 Social History Date Type Detail Facility Start: 11-01-2024 End: 02-08-2025 Tobacco smoking status MEIS Smokes tobacco daily [facility] Start: 10-05-1957 History of tobacco use Cigarette Smo ker [facility] Start: 11-01-2024 Cigarettes smoked current (pack per day) - Reported 0.3 [facility] Start: 11-01-2024 Tobacco use and exposure Smokeless tobacco non-user [facility] Start: 11-01-2024 Alcoholic beverage intake Current drinker of alcohol (finding) [facility] Start: 11-01-2024 Tobacco use panel [facility] Start: 11-01-2024 Tobacco Comment 3/4 ppd x 40 years [facility] Start: 1936 Sex assigned at Not on file [facility] Start: 1935 Sex Assigned At Female [facility] Discharge summary 02-28-2025 Note Date & Type Note Facility 02-28-2025 Discharge summary [facility] Discharge summary 02-28-2025 Note Date & Type Note Facility 02-28-2025 Discharge summary Note Date/Time February 28, 2025 3:48p m [facility] Physical Therapy [facility] [address] [place] [address] / REHABILITATION SERVICES DISCHARGE SUMMARY MR#: [id number] Acct: [id number] Name: KENDRA ALSTON Rep #: [id number] : 1935 89 From: Brigida Quesada MP T Referring Dr.: Dr. Ike Felder MD Status: REG RCR Insurance: MEDICARE PART A B [facility] Discharge Summary D/C summary: It has been my pleasure to treat KENDRA ALSTON referred by Dr. Ike Felder MD, with the diagnosis of dizziness and giddiness for a total of 3 visit(s). Discharge Date: 02/28/25 Please see the following information for a summary of their discharge status. Subjective Subjective: Pt reports that she has not had any dizziness and only had to do theBD for 4 days. Pt wants to get an order from her Dr for weakness. She might want to look into a class for exercises as well. Overall Improvement % Improvement: 100 Objective Objective/Function: -R Hallpike for dizziness and nystagmus -L Hallpike for dizziness and nystagmus Instructed pt and pt performed 3 rounds of BD exercises and pt will perform at home twice a day over the next week Goals Goal 1:: Abolish dizziness when lays down on the R side at night Goal Progress: Goal Met Goal 2:: Test VOR if needed Plan Plan: DC PT D/C Information Discharge Comments: DC PT d/c sentence: If there are questions or concerns regarding this patient's physical therapy, please feel free to call me at [phone]. Thank you for the referral of thispatient. Sincerely, Brigida Quesada, MPT Balance/Gait/Functional tests Balance/Special Test Scores Dizziness Score: 26 Improvement % Improvement: 100 <Electronically signed by rBigida Quesada MPT> 02/28/25 1005 CC: Dr. Ike Felder MD ~ Signed [facility] Work Phone: Progress note 11-01-2024 Note Date & Type Note Facility 11-01-2024 Note HNO ID: [id number] Author: MUNIRA RUST PA-C Service: ? Author Type: Physician Paint Mixer Type: Progress Notes Filed: 11/01/2024 09:23 Note Text: This note was created using [employer]. Subjective Kendra Alston is a 89 year old female. Patient is an 89-year-old female who complains of congestion, sinus pressure, throat irritation, nasal discharge and cough that she has been experiencing for the past 10 days. Patient also describes an overall feeling of fatigue and illness. Patient has no history of asthma or COPD but does have a [id number] history of tobacco use and continues to smoke. Patient reports no episodes of wheezing, dyspnea or shortness of breath. Cough Review of Systems Constitutional: Positive for fatigue. HENT: Positive for congestion, postnasal drip and sinus pressure. Respiratory: Positive for cough. All other systems reviewed and are negative. Objective BP 132/73 Pulse 94 Temp 36.7 ?C (98 ?F) Resp 22 Wt 62 kg (136 lb 11 oz) LMP (LMP Unknown) SpO2 95% Physical Exam Vitals and nursing note reviewed. Constitutional: Appearance: Normal appearance. She is normal weight. HENT: Head: Normocephalic and atraumatic. Right Ear: Tympanic membrane, ear canal and external ear normal. Left Ear: Tympanic membrane, ear canal and external ear normal. Nose: Nose normal. Mouth/Throat: Mouth: Mucous membranes are moist. Pharynx: Oropharynx is clear. Eyes: Extraocular Movements: Extraocular movements intact. Conjunctiva/sclera: Conjunctivae normal. Pupils: Pupils are equal, round, and reactive to light. Cardiovascular: Rate and Rhythm: Normal rate and regular rhythm. Pulses: Normal pulses. Heart sounds: Normal heart sounds. Pulmonary: Effort: Pulmonary effort is normal. Breath sounds: Normal breath sounds. Musculoskeletal: Cervical back: Normal range of motion and neck supple. Skin: General: Skin is warm and dry. Capillary Refill: Capillary refill takes less than 2 seconds. Neurological: General: No focal deficit present. Mental Status: She is alert and oriented to person, place, and time. Psychiatric: Mood and Affect: Mood normal. Behavior: Behavior normal. Thought Content: Thought content normal. Judgment: Judgment normal. Assessment and Plan Physical exam findings as noted above. Patient was provided with prescriptions for doxycycline 100 mg, prednisone 20 mg and Tessalon 100 mg. Supportive care instructions were discussed and the patient was clearly advised to report to an emergency department if she notes any worsening symptoms. Patient verbalizes clear understanding of the above instructions. CLINICAL IMPRESSION: Acute Sinusitis ASSESSMENT/PLAN: 1. Acute non-recurrent sinusitis, unspecified location - ICD9: 461.9, ICD10: J01.90 - DOXYCYCLINE HYCLATE 100 MG TABLET - PREDNISONE 20 MG TABLET - BENZONATATE 100 MG CAPSULE Munira Rust PA-C [facility] History of Present illness Narrative 11-01-2024 Munira Rust PA-C - 11/01/2024 9:20 AM EST Note Date & Type Note Facility 11-01-2024 History of Presen t illness Narrative This note was created using [employer]. Subjective Kendra Alston is a 89 year old female. Patient is an 89-year-old female who complains of congestion, sinus pressure, throat irritation, nasal discharge and cough that she has been experiencing for the past 10 days. Patient also describes an overall feeling of fatigue and illness. Patient has no history of asthma or COPD but does have a [id number] history of tobacco use and continues to smoke. Patient reports no episodes of wheezing, dyspnea or shortness of breath. Cough Review of Systems Constitutional: Positive for fatigue. HENT: Positive for congestion, postnasal drip and sinus pressure. Respiratory: Positive for cough. All other systems reviewed and are negative. Objective BP 132/73 Pulse 94 Temp 36.7 C (98 F) Resp 22 Wt 62 kg (136 lb 11 oz) LMP (LMP Unknown) SpO2 95% Physical Exam Vitals and nursing note reviewed. Constitutional: Appearance: Normal appearance. She is normal weight. HENT: Head: Normocephalic and atraumatic. Right Ear: Tympanic membrane, ear canal and external ear normal. Left Ear: Tympanic membrane, ear canal and external ear normal. Nose: Nose normal. Mouth/Throat: Mouth: Mucous membranes are moist. Pharynx: Oropharynx is clear. Eyes: Extraocular Movements: Extraocular movements intact. Conjunctiva/sclera: Conjunctivae normal. Pupils: Pupils are equal, round, and reactive to light. Cardiovascular: Rate and Rhythm: Normal rate and regular rhythm. Pulses: Normal pulses. Heart sounds: Normal heart sounds. Pulmonary: Effort: Pulmonary effort is normal. Breath sounds: Normal breath sounds. Musculoskeletal: Cervical back: Normal range of motion and neck supple. Skin: General: Skin is warm and dry. Capillary Refill: Capillary refill takes less than 2 seconds. Neurological: General: No focal deficit present. Mental Status: She is alert and oriented to person, place, and time. Psychiatric: Mood and Affect: Mood normal. Behavior: Behavior normal. Thought Content: Thought content normal. Judgment: Judgment normal. Assessment and Plan Physical exam findings as noted above. Patient was provided with prescriptions for doxycycline 100 mg, prednisone 20 mg and Tessalon 100 mg. Supportive care instructions were discussed and the patient was clearly advised to report to an emergency department if she notes any worsening symptoms. Patient verbalizes clear understanding of the above instructions. CLINICAL IMPRESSION: Acute Sinusitis ASSESSMENT/PLAN: 1. Acute non-recurrent sinusitis, unspecified location - ICD9: 461.9, ICD10: J01.90 - DOXYCYCLINE HYCLATE 100 MG TABLET - PREDNISONE 20 MG TABLET - BENZONATATE 100 MG CAPSULE Munira Rust PA-C documented in this encounter [facility] Evaluation note Note Date & Type Note Facility Evaluation note Diagnosis Acute non-recurrent sinusitis, unspecified location- Primary documented in this encounter [facility] Evaluation note Note Date & Type Note Facility Evaluation note No assessment information availa [facility] Work Phone: Summary Purpose Family History No Family History Records Found Relationship Condition Age at Onset Recorded Date/T jill daughter Kidney disorder Unknown mother Arthritis Unknown father Disorder of lung Unknown Advance Directives No Advanced Directives Records FoundNo Advanced Directives Records Found Chief Complaint and Reason for Visit Chief Complaint Admit Date 6 M FU February 08, 2025 10:05a m [facility] HERE February 28, 2025 9:30a m Chief Complaint Admit Date 6 M FU February 08, 2025 10:05a m [facility] February 28, 2025 9:30a m DISCUSS REFERRAL FOR PT March 10, 2025 1 :46pm Additional Source Comments INFORMATION SOURCE (unrecogn ized section and content) DATE CREATED AUTHOR 11/02/2024 [facility] DATE CREATED AUTHOR AUTHOR'S ORGANIZ ATION 03/11/2025 [facility] Source Comments (unrecognize d section and content) In the event this informatio n is protected by the Federal Confidentiality of Alcohol and Drug Abuse Patient Records regulations: The Federal rules restrict any use of the information to criminally investigate or prosecute any alcohol or drug abuse patient.[facility] Reason for Visit (unrecogniz ed section and content) Reason Comments Cough Chest congestion, na ayan congestion, headache, fatigue, SOB, wheeze bilat eye mucous, yellow phlegm x 1 week Care Teams (unrecognized sec tion and content) J2Ee Programmer Relationship Specialty Start Date End Date Ike Felder MD [address] [place] [address] PCP - General Internal Medicine 11/01/24 Team Status: Active Member Role Status Dates Dr. Iek Felder MD Primary Care Provider Active Team Status: Inactive Member Role Status Dates Dr. Ike Felder MD Primary Care Provider Active Start: February 08, 2025 End: February 08, 2025 Dr. Ike Felder MD Attending Provider Active Start: February 08, 2025 End: February 08, 2025 Dr. Ike Felder MD Referring Provider Active Start: February 08, 2025 End: February 08, 2025 Team Status: Inactive Member Role Status Dates Dr. Ike Felder MD Primary Care Provider Active Start: February 28, 2025 End: February 28, 2025 Dr. Ike Felder MD Attending Provider Active Start: February 28, 2025 End: February 28, 2025 Dr. Ike Felder MD Referring Provider Active Start: February 28, 2025 End: February 28, 2025 Team Status: Inactive Member Role Status Dates Dr. Ike Felder MD Primary Care Provider Active Start: March 10, 2025 End: March 10, 2025 Dr. Ike Felder MD Referring Provider Active Start: March 10, 2025 End: March 10, 2025 JADYN Duran Attending Provider Active Start: March 10, 2025 End: March 10, 2025 Goals (unrecognized section and content) Goals may be documented in a n alternate sectionGoals may be documented in an alternate section FOR RECORDS PERTAINING TO PATIENTS WHO ARE OR HAVE BEEN ENROLLED IN A CHEMICAL DEPENDENCY/SUBSTANCEABUSE PROGRAM, SOME INFORMATION MAY BE OMITTED. This clinical summary was aggregated from multiple sources. Caution should be exercised in using it in the provision of clinical care. This summary normalizes information from multiple sources, and as a consequence, information in this document may materially change the coding, format and clinical context of patient data. In addition, data may be omitted in some cases. CLINICAL DECISIONS SHOULD BE BASED ON THE PRIMARY CLINICAL RECORDS. [facility]. provides no warranty or guarantee of the accuracy or completeness of information in this document.
== END | disposition home or self-care (01) ==
LOC: CVS 08:34
PROVIDERS: PCP Internal Medicine; Referring Provider Internal Medicine; Visit Provider Internal Medicine
DX: I35.0 Nonrheumatic aortic (valve) stenosis (principal)
CPT/HCPCS: 93306

== ENCOUNTER 2025-04-20 11:30 | Outpatient (RCR) | payer MEDICARE, BC, SELFPAY ==
--- NOTE | 2025-03-23 15:33 | HP.PTEVAL ---
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 Date of Evaluation: 03/23/25 Physical Therapist: Sae Cifuentes, PT, Cert MDT, OCS Visit Plan Frequency: 2x /Week Duration: 4 Weeks Plan: PT INTERVENTIONS BLE/BUE STRENGTHENING ,BALANCE TRAINING ,FUNCTIONAL STRENGTHENING , AND ENDURANCE PROGRAM Subjective Subjective: This 89 y/o female presents to physical therapy with generalized weakness. Patient seen DR rosenberg PT after seen with dizziness which is better. Patient major c/o weakness overall legs /arms . Patient is able to do laundry /cooking . Patient get fatigue weak with extended distances. Patient has difficulty with steps . Patient has 1 story home with steps with rails walk in shower grab rails . Patient has no falls or dizziness. No pain. Patient sleeping good at night. Patient condition affects QOL and function/gait. Patient goals . Patient was in [place] 2x week [facility]. SOCIAL: significant VOCATION: retired Objective Objective: POSTURE: mild posture hips/knees flexed NEURO: denies paresthesia/tingling GAIT: ambulates with 2 point hips/knees flexed ,shuffle step decrease step length slow corina PALPATION: unremarkable in legs FLEXABILITY: Hamstrings min MMT: quads/hams 4/5 ,ankle 4/5 ,( peak force) hip flexion right 18.1 ,left 15.6 ,NT HIP AROM BLE: WFL limited > right and left AROM BUE: WFL MMT: grossly 4/5 ,3+/5 Balance/Special Test Scores Functional Gait Assessment Score: 12 % Disability: 60.0000 Lower Extremity Functional Score: 24 Goals Goal 1:: Patient to be I with HEP for strengthening Goal Time Frame: 4-6 Weeks Goal 2:: Patient to improve peak force hip flexion by 5-10 # to improve function gait. Goal Time Frame: 4-6 Weeks Goal 3:: Patient to LFES score by 5 points to improve QOL and function. Goal Time Frame: 4-6 Weeks Goal 4:: Patient improve functional gait assessment by 3-5 points to improve gait Goal Time Frame: 4-6 Weeks Goal 5:: Patient to demonstrate 50% improvement function and QOL Goal Time Frame: 4-6 Weeks Rehabilitation Potential Physical Therapy Diagnosis: This patient has generalized weakness BLE and decrease balance impairs ADLS and housework tasks thus benefit from skilled PT Rehabilitation Potential: Fair Anticipated Interventions Patient/Client Instruction: Educate patient on: Condition and Plan of Care For the Purpose of:: To improve muscle performance and motor function, To increase tolerance to activity/condition/position, To improve performance and independence with ADL's, To improve ability of physical actions for home/community/work/leisure, To improve gait and locomotor functions, To increase flexibility/ROM, To improve endurance, To improve balance, To assume or resume ADL's and To improve tolerance to ADL's Therapeutic Exercise to Include: Strength training, Endurance training, Balance training, Flexibilty training and Dynamic Lumbar Stabilization For the Purpose of:: To increase ROM, To improve muscle performance and motor function, To improve ability to perform ADL's, To increase tolerance to activity/condition/position, To improve ability of physical actions for home/community/work/leisure, To improve gait and locomotor functions, To improve health of tissue, To decrease soft tissue restriction, To increase flexibility/ROM, To improve endurance and To improve balance Text: Thank you for the opportunity to evaluate your patient. For Medicare and Medicare HMO plans, please review the plan of care and approve it. It will need to be FAXED BACK to us at [phone] for Medicare purposes. For Medicare only, by signing this I certify the plan of care. Please let me know if there are questions or concerns regarding this plan of care. Physician Signature: Date:
--- NOTE | 2025-04-20 11:56 | HP.PTDCSUM ---
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 Discharge Date: 04/20/25 Please see the following information for a summary of their discharge status. Subjective Subjective: Some things see improvement Better with steps to get in house Use cart in grocery store Overall Improvement % Improvement: 10 Objective Objective/Function: POSTURE: mild posture hips/knees flexed NEURO: denies paresthesia/tingling GAIT: ambulates with 2 point hips/knees flexed ,shuffle step decrease step length slow corina PALPATION: unremarkable in legs FLEXABILITY: Hamstrings min MMT: quads/hams 4/5 ,ankle 4/5 ,( peak force) hip flexion right 25.1 ,left 26.4 , AROM BLE: WFL limited > right and left AROM BUE: WFL MMT: grossly 4/5 ,3+/5 Goals Goal 1:: Patient to be I with HEP for strengthening Goal Progress: Goal Met Goal 2:: Patient to improve peak force hip flexion by 5-10 # to improve function gait. Goal Progress: Goal Met Goal 3:: Patient to LFES score by 5 points to improve QOL and function. Goal Progress: Goal Met Goal 4:: Patient improve functional gait assessment by 3-5 points to improve gait Goal Progress: Progressing Goal 5:: Patient to demonstrate 50% improvement function and QOL Goal Progress: Progressing Plan Plan: D/C D/C Information Discharge Comments: HEP d/c sentence: If there are questions or concerns regarding this patient's physical therapy, please feel free to call me at [phone]. Thank you for the referral of this patient. Sincerely, Sae Cifuentes, PT, Cert MDT, OCS Balance/Gait/Functional tests Balance/Special Test Scores Functional Gait Assessment Score: 13 % Disability: 56.6700 Lower Extremity Functional Score: 37 Improvement % Improvement: 10
== END 2025-04-20 19:00 | disposition home or self-care (01) ==
LOC: PT 11:30
PROVIDERS: PCP Internal Medicine; Referring Provider Nurse Practitioner Family; Visit Provider Nurse Practitioner Family
DX: R54 Age-related physical debility (principal); R42 Dizziness and giddiness
CPT/HCPCS: 97110; 97162; 97530

== ENCOUNTER → 2025-08-09 | Outpatient (CLI) | payer MEDICARE, BC, SELFPAY ==
[2025-08-09 12:32] LABS: Hematocrit 43.4 % (37-47); Hemoglobin 13.9 g/dL (12.0-15.0); Immature Granulocytes Count 0.010 X10^3/uL (0.0-0.0); Mean Corp Hgb Conc 32.0 g/dL (32-36); Mean Corpuscular Volume 96.9 fL (81-99); Mean Platelet Vol. 11.9 fl (6.2-12.0); NRBC Flagged by Analyzer 0 % (0-5); Platelet Count 247 K/mm3 (150-450); RBC Distribution Width CV 12.2 % (11.6-14.6); RBC Distribution Width SD 43.4 fl (35.1-43.9); Red Blood Count 4.48 M/mm3 (4.2-5.4); White Blood Count 5.7 K/mm3 (4.4-11.0)
[2025-08-09 13:10] LABS: AST(SGOT) 23 U/L (<=31); Alanine Aminotransfer ALT/SGPT 11 U/L (<=34); Albumin, Serum 4.1 g/dL (3.4-4.8); Alkaline Phosphatase 53 U/L (35-104); Anion Gap 14 (5-15); BUN 16 mg/dL (4-19); BUN/Creat Ratio 16.3 RATIO (10-20); Calcium,Total 9.2 mg/dL (7.6-11.0); Carbon Dioxide 24.0 mmol/L (21.0-32.0); Chloride 105 mmol/L (98-108); Globulin 2.6 g/dL (2.2-4.2); Glucose 89 mg/dL (70-99); Potassium 4.6 mmol/L (3.3-5.1); Vitamin D,25 Hydroxy 51.6 ng/mL (30-100)
== END | disposition home or self-care (01) ==
LOC: MTLAB 10:06
PROVIDERS: PCP Internal Medicine; Referring Provider Internal Medicine; Visit Provider Internal Medicine
DX: I35.0 Nonrheumatic aortic (valve) stenosis (principal); R00.2 Palpitations; M81.0 Age-related osteoporosis without current pathological fracture
CPT/HCPCS: 36415; 80053; 82306; 85025